=== PATIENT | male | born 1985 | race Caucasian/White ===

== ENCOUNTER 2019-03-22 15:39 | Emergency (ER) | payer OTHER ==
[~2019-03-22] VITALS: Ht 180.3 cm; Wt 113.7 kg
--- NOTE | 2019-03-22 16:14 | NUR ---
FROM LOBBY TO ROOM AT THIS TIME
--- NOTE | 2019-03-22 16:33 | NUR ---
PT TO ED FOR LEFT HAND SWELLING AND ERYTHEMA X4 DAYS. PT STATES HX GOUT BUT HAS RUN OUT OF PRESCRIBED ALOPURINOL. PT CONNECTED TO MONITORS. VSS. NO NEEDS EXPRESSED. [facility]. LOGAN CRUZ RECEVIED. XR COMPLETE. AWAITING EDMD ASSESSMENT AND FURTHER ORDERS.
--- NOTE | 2019-03-22 16:53 | NUR ---
LABS DRAWN AND SENT. EDPA TO [facility].
[2019-03-22] MEDS ORDERED: HYDROcodone/APAP 5/325 TABLET PO ONE (17:00)
[2019-03-22] MEDS ORDERED: HYDROcodone/APAP 5/325 TABLET ONE (17:13)
[2019-03-22 17:15] LABS: ALBUMIN 3.6 g/dL (3.4-5.0); ANION GAP 6 mmol/L (5-15); CALCIUM 8.8 mg/dL (8.5-10.1); CHLORIDE 109 mmol/L (98-107); CREATININE 1.03 mg/dL (0.7-1.3)
[2019-03-22 17:17] VITALS: BP 150/83
--- NOTE | 2019-03-22 17:17 | NUR ---
PT RESTING IN ROOM. NO NEEDS EXPRESSED. VSS. CALL [facility] WITHIN REACH. AWAITING LAB REDRAW.
[2019-03-22 17:45] LABS: BASOPHILS # (AUTO) 0.04 x10^3/uL (0-0.1); BASOPHILS % (AUTO) 1 % (0-1); EOSINOPHILS # (AUTO) 0.08 x10^3/uL (0-0.4); EOSINOPHILS % (AUTO) 1 % (1-7); LYMPHOCYTES # (AUTO) 1.83 x10^3/uL (1-3.4); LYMPHOCYTES % (AUTO) 21 % (22-44); MD NO; MEAN CORPUSCULAR HEMOGLOBIN 30.4 pg (27.5-34.5); MEAN CORPUSCULAR HGB CONC 33.2 g/dL (33.2-36.2); MEAN CORPUSCULAR VOLUME 91.8 fL (81-97); MEAN PLATELET VOLUME 7.8 fL (7.4-10.4); MONOCYTES # (AUTO) 0.72 x10^3/uL (0.2-0.8); MONOCYTES % (AUTO) 8 % (2-9); NEUTROPHILS # (AUTO) 6.17 x10^3/uL (1.8-6.8); NEUTROPHILS % (AUTO) 70 % (42-75); PLATELET COUNT 229 x10^3/uL (130-400); RED BLOOD COUNT 5.31 x10^6/uL (4.38-5.82); RED CELL DISTRIBUTION WIDTH 13.3 % (9.4-14.8)
[2019-03-22] MEDS ORDERED: INDOMETHACIN 50 MG CAPSULE PO ONE (18:00)
== END 2019-03-22 19:19 | disposition home or self-care (01) ==
LOC: ED 18:20
DX: M10.042 Idiopathic gout, left hand (principal); I10 Essential (primary) hypertension
CPT/HCPCS: 36415; 80048; 82040; 84550; 85025; 99284

== ENCOUNTER 2019-05-16 10:51 | Emergency (ER) | payer OTHER ==
[~2019-05-16] VITALS: Ht 180.3 cm; Wt 115.0 kg
[2019-05-16 11:04] VITALS: BP 131/88
== END 2019-05-16 12:16 | disposition home or self-care (01) ==
LOC: ED 11:22
DX: M25.561 Pain in right knee (principal); M79.641 Pain in right hand; M10.061 Idiopathic gout, right knee; M10.041 Idiopathic gout, right hand; I10 Essential (primary) hypertension
CPT/HCPCS: 36415; 73130; 73564; 84550; 96372; 99284; J1885

== ENCOUNTER 2021-06-08 08:28 | Emergency (ER) | payer OTHER ==
[~2021-06-08] VITALS: Ht 180.3 cm; Wt 129.0 kg
[2021-06-08] MEDS ORDERED: COLCHICINE 0.6 MG CAPSULE ONE (08:52)
[2021-06-08] MEDS ORDERED: COLCHICINE 0.6 MG CAPSULE PO ONE (09:00)
[2021-06-08 09:26] VITALS: BP 124/54
== END 2021-06-08 09:29 | disposition home or self-care (01) ==
LOC: ED 09:15
DX: M10.031 Idiopathic gout, right wrist (principal); M10.021 Idiopathic gout, right elbow; M10.072 Idiopathic gout, left ankle and foot; I10 Essential (primary) hypertension; F17.200 Nicotine dependence, unspecified, uncomplicated
CPT/HCPCS: 99283